=== PATIENT | male | born 1990 | race Caucasian/White ===

== ENCOUNTER 2017-10-06 23:45 | Emergency (ER) | payer MEDICAID ==
[~2017-10-06] VITALS: Ht 175.3 cm; Wt 63.5 kg
--- NOTE | 2017-10-07 | Emergency Room Report ---
History of Present Illness General Chief Complaint: Eye Problems Source: Patient Present Illness HPI Patient presents with complaints of right eye itching and pain reports that 3 days ago he was poked in the eye He has had pain off-and-on since then Also reported initially double vision at times since the injury Denies any chest pain or shortness of breath denies any back or flank pain Reports that the eye feels more itchy at this time than painful Allergies: Coded Allergies: No Known Allergies (Unverified , 10/06/17) Patient History Past Medical History: see triage record Pertinent Family History: none Reviewed Nursing Documentation: PMH: Agreed; PSxH: Agreed Nursing Documentation-PMH Past Medical History: No Stated History Review of Systems All Other Systems: negative except mentioned in HPI Physical Exam Vital Signs Date Time Temp Pulse Resp B/P (MAP) Pulse Ox O2 Delivery O2 Flow Rate FiO2 10/06/17 23:47 97.8 77 18 102/67 95 Room Air 97.9 Sp02 EP Interpretation: reviewed, normal General Appearance: well appearing Head: normocephalic, atraumatic Eyes: right eye other - Conjunctival irritation, no hyphema, no obvious fluorescine uptake; bilateral eye PERRL ENT: normal pharynx Neck: full range of motion, supple Respiratory: lungs clear Cardiovascular #1: regular rate, rhythm, no edema Musculoskeletal: normal inspection Neurologic: alert, oriented x3, responsive, 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 III-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 nml as tested Skin: normal color, no rash, palpation normal Lymphatic: normal inspection Medical Decision Making Diagnostic Impression: Primary Impression: Abrasion of sclera of right eye ER Course Given the patient's complaints and history imaging was obtained to further evaluate rupture of the globe Clinically however did not appear to be ruptured CT imaging does not show any evidence of fracture or other acute pathology Fluorescing staining was performed there was no obvious signs of uptake however given the patient's discomfort he was placed on antibiotics Consideration for retinal detachment is made This episode happened over 3 days ago And patient will benefit from close outpatient ophthalmology follow-up CT/MRI/US Diagnostic Results CT/MRI/US Diagnostic Results : Impression CT orbit: No acute disease Last Vital Signs Date Time Temp Pulse Resp B/P (MAP) Pulse Ox O2 Delivery O2 Flow Rate FiO2 10/06/17 23:47 97.8 77 18 102/67 95 Room Air 97.9 Status: improved Disposition: HOME, SELF-CARE Condition: Improved Scripts Ibuprofen* (MOTRIN*) 600 Mg Tablet 600 MG ORAL Q8H PRN for For Pain, #20 TAB 0 Refills Prov: Miguel Angel Alberto DO 10/07/17 Gentamicin Sulfate* (GENTAMICIN SULFATE*) 3.5 Gm Oint...g. 3.5 GM OP TID for 7 Days, GM Prov: Miguel Angel Alberto DO 10/07/17 Referrals: NOT CHOSEN IPA/MD,REFERRING (PCP) Additional Instructions: Patient is provided with the discharge instructions notified to follow up with primary doctor in the next 2-3 days otherwise return to the er with any worsening symptoms. Please note that this report is being documented using [employer] technology. This can lead to erroneous entry secondary to incorrect interpretation by the dictating instrument. Miguel Angel Alberto DO October 07, 2017 00:00
[2017-10-07 00:02] VITALS: BP 102/67
[2017-10-07] MEDS ORDERED: GENTAMICIN SUL3.5 GM OP (00:40)
[2017-10-07] MEDS ORDERED: IBUPROFEN600 MG ORAL (00:40)
[2017-10-07 00:51] VITALS: BP 102/67
--- NOTE | 2017-10-07 10:03 | Diagnostic Imaging Report ---
Indication: Right eye pain. Trauma Technique: Continuous helical transaxial imaging of the maxillofacial structures obtained without intravenous contrast administration. Coronal 2-D reformats were also obtained. Study obtained in a Siemens sensation [address] Automatic Exposure Control was utilized. Total Dose length Product (DLP): 507.[address] Dose Index Volume (CTDIvol): 28.19 mGy Comparison: None Findings: There is no evidence of an acute fracture. Paranasal sinuses and mastoids are clear. Soft tissues are unremarkable. Orbits are unremarkable. No proptosis or retrobulbar hemorrhage identified. Postsurgical changes with fixation screws noted in the visualized portion of the left mandible. This is only partially visualized on this examination. IMPRESSION: No acute injury appreciated. The CT scanner at [facility] is accredited by the [employer] and the scans are performed using dose optimization techniques as appropriate to a performed exam including Automatic Exposure control.
== END 2017-10-07 00:53 | disposition home or self-care (01) ==
LOC: EDBD 23:45 → EMR 23:56
DX: S05.01XA Injury of conjunctiva and corneal abrasion without foreign body, right eye, initial encounter (principal); X58.XXXA Exposure to other specified factors, initial encounter; Y92.9 Unspecified place or not applicable
CPT/HCPCS: 70480; 99284